=== PATIENT | male | born 1940 | race Caucasian/White ===

== ENCOUNTER 2018-06-28 15:39 | Emergency (ER) | payer MEDICARE ==
[~2018-06-28] VITALS: Ht 182.9 cm; Wt 89.1 kg
[2018-06-28 15:39] VITALS: TEMP 97
[2018-06-28 16:25] LABS: BASO % 0.3 % (0.0-2.0); EOS # 0.1 (0.0-0.7); EOS % 0.7 % (0-4.0); GRAN # 6.8 (1.4-6.5); GRAN % 69.6 % (42.2-75.2); HEMATOCRIT 37.1 % (42.0-52.0); HEMOGLOBIN 12.1 g/dl (13.5-18.0); LYMPH # 2.1 (1.2-3.4); MEAN CELL VOLUME 101 fl (80.0-100.0); MEAN CORPUSCULAR HEMOGLOBIN 33 pg (27.0-31.0); MEAN CORPUSCULAR HGB CONC 33 g/dl (33.0-37.0); MEAN PLATELET VOLUME 10.5 fl (7.4-10.4); MONO # 0.7 (0.1-0.6); PLATELET COUNT 152 K/mm3 (130-400); RED BLOOD COUNT 3.69 M/mm3 (4.20-5.60); REDCELL DISTRIBUTION WIDTH-CV 12.7 % (11.5-14.5)
[2018-06-28 16:40] LABS: BILIRUBIN,TOTAL 0.4 mg/dL (0.0-1.0); C-REACTIVE PROTEIN 1.6 mg/dL (0.0-0.9); CALCIUM 8.2 mg/dL (8.4-10.2); CREATININE, serum 1.16 (0.66-1.25); POTASSIUM 4.5 mmol/L (3.4-5.0)
[2018-06-28 16:51] LABS: TROPONIN-I 0.204 ng/mL (0.000-0.035)
[2018-06-28 18:15] VITALS: BP 114/76; PULSE 114
[2018-06-28 18:20] LABS: COLLECTION METHOD CLEAN CATCH
[2018-06-28 18:32] LABS: MUCOUS Present /lpf; PH 6 (5-8); SQUAMOUS EPITHELIAL None Seen /hpf; URINE APPEARANCE Hazy; URINE BACTERIA None Seen /hpf; URINE BILIRUBIN Negative (NEGATIVE); URINE BLOOD 3+ (NEGATIVE); URINE COLOR Yellow; URINE GLUCOSE Negative (NEGATIVE); URINE KETONE Negative (NEGATIVE); URINE LEUKOCYTE ESTERASE Trace (NEGATIVE); URINE NITRATE Negative (NEGATIVE); URINE PROTEIN(semi-quant) 1+ (NEGATIVE); URINE RBC >50 /hpf; URINE UROBILINOGEN Negative (NEGATIVE)
[2018-06-28] MEDS ORDERED: BETAPACE 80MG80 MG PO (18:32)
[2018-06-28] MEDS ORDERED: FLOMAX 0.40.4 MG/CAP PO (18:32)
[2018-06-28] MEDS ORDERED: GLUCOPHAGE500 MG/TAB PO (18:33)
[2018-06-28] MEDS ORDERED: ZYLOPRIM 300MG300 MG PO (18:33)
[2018-06-28] MEDS ORDERED: OZEMPIC0.25 MG/0. SQ (18:33)
[2018-06-28] MEDS ORDERED: PRENATAL (18:34)
[2018-06-28] MEDS ORDERED: PRINIVIL5 MG PO (18:34)
[2018-06-28] MEDS ORDERED: TYLENOL 325MG325 MG PO (18:34)
[2018-06-28] MEDS ORDERED: PRADAXA 150MG150 MG PO (18:35)
[2018-06-28] MEDS ORDERED: PRAVACHOL 20MG20 MG PO (18:35)
[2018-06-28] MEDS ORDERED: MONODOX100 PO (18:36)
== END 2018-06-28 18:15 | disposition short-term general hospital (02) ==
LOC: COL.ER 15:39
PROVIDERS: Emergency Medicine
DX: R55 Syncope and collapse (principal); I26.99 Other pulmonary embolism without acute cor pulmonale; I48.91 Unspecified atrial fibrillation; I12.9 Hypertensive chronic kidney disease with stage 1 through stage 4 chronic kidney disease, or unspecified chronic kidney disease; N18.9 Chronic kidney disease, unspecified; E11.22 Type 2 diabetes mellitus with diabetic chronic kidney disease; E78.00 Pure hypercholesterolemia, unspecified; I25.10 Atherosclerotic heart disease of native coronary artery without angina pectoris; Z79.01 Long term (current) use of anticoagulants
CPT/HCPCS: J1644; J7030; Q9967